=== PATIENT | female | born 1965 | race African-American/Black ===

== ENCOUNTER 2018-02-27 12:53 | Outpatient (REF) | payer MEDICAID, SELFPAY ==
[2018-02-27 21:48] LABS: ALT 23 U/L (12-78); AST 11 U/L (15-37); Albumin 3.7 g/dL (3.4-5.0); Alkaline Phosphatase 141 U/L (46-116); Anion Gap 10.1 mmol/L (3-11); BUN 20 mg/dL (7-18); Bilirubin, Total 0.3 mg/dL (0.2-1.0); CO2 23.9 mmol/L (21.0-32.0); CREATININE 0.84 mg/dL (0.55-1.02); Calcium 8.6 mg/dL (8.5-10.1); Chloride 106 mmol/L (98-107); Cholesterol 189 mg/dL (50-200); Glucose 97 mg/dL (70-100); HDL Cholesterol 45 mg/dL (40-60); LDL CHOLESTEROL 136 mg/dL (<100); Potassium 4.4 mmol/L (3.5-5.1); Sodium 140 mmol/L (136-145); Triglyceride 64 mg/dL (30-150)
[2018-03-01 11:12] LABS: HIV-1/2 Ag & Ab Screen Negative (NEGAT)
== END 2018-02-27 13:13 ==
LOC: NCHCN 12:53
PROVIDERS: PCP Family Medicine; Visit Provider Family Medicine
DX: I10 Essential (primary) hypertension (principal); Z11.3 Encounter for screening for infections with a predominantly sexual mode of transmission; E66.9 Obesity, unspecified; Z11.4 Encounter for screening for human immunodeficiency virus [HIV]; Z13.220 Encounter for screening for lipoid disorders
CPT/HCPCS: 80053; 80061; 83721; 87389

== ENCOUNTER 2018-06-16 07:18 | Day surgery (SDC) | payer MEDICAID, SELFPAY ==
[2018-06-16 07:48] VITALS: BP 140/69; PULSE 96; RESP 18; TEMP 36.6; O2SAT 98
[2018-06-16] MEDS: Lactated Ringers 1,000 ML 80 ML IV (08:08)
[2018-06-16] MEDS: Lidocaine 2% Multi-Dose 50 ML VIAL (09:16)
--- NOTE | 2018-06-16 09:27 | W.PM.DSUDISC ---
Discharge Plan Disposition Patient Disposition: HOME Condition: Improving Discharge Details Reason For Visit: (L) CARPAL TUNNEL Attending Provider: Gregory Ortiz Primary Care Provider: Mary Kate Jean Home Meds and New Rx's Prescriptions: No Action nicotine [Nicoderm CQ] 1 EACH patch 24 hour 14 mg Transdermal DAILY Qty: 30 RF: 3 omeprazole [Prilosec] 20 MG capsule,delayed release(DR/EC) 20 mg PO DAILY RF: 0 ibuprofen 600 MG tablet 600 mg PO Q8H PRN RF: 0 epinephrine [EpiPen 2-Apollo] 0.3 MG/0.3 ML auto-injector 0.3 mg IM ONCE RF: 0 ProAir HFA 8.5 GM HFA aerosol inhaler 2 puff Inhalation Q4H PRN RF: 0 gabapentin 100 MG capsule 300 mg PO BID RF: 0 Discharge Instructions Additional Instructions: Keep your left hand elevated above heart level as much as possible for the next 48-72 hours. Exercise your fingers and thumb as comfort allows. You may loosen the wrist splint and/or the underlying leticia bandage if they feel too tight. Expect some bloody drainage on the underlying gauze bandage. For showering tomorrow, cover your hand and brace with a plastic bag with a rubber band about the upper forearm to keep the bandages dry.On 06/18/17, you may remove all of your bandages and get your wound wet in the shower with soap and water. Gently pat the stitches dry and cover them with gauze, or extra-large bandaids or a clean fingerless cotton glove. This prevents the stitches catching on your clothing or other objects. Continue to use your fingers and thumb as comfort allows. Do not allow your fingers to get stiff. Only continue to use the brace for discomfort and you may go without it after tuesday. Take your regular medications as before. Take tylenol, advil or aleve for milder pain. Tylenol may be taken at the same time as advil or at the same time as aleve as they are metabolized differently and are not cross toxic. take norco (hydrocodone 5/325 mg) 1-2 every 4-6 hours as needed for more serious pain. [facility] [place] regulations limit the amount of norco that can be prescribed to 18 tablets. Follow-up with Dr. Ortiz in 1 week for stitch removal. Equipment/Supplies: Brace Activity:: Elevate Remove Dressings/Wound Care:: 48 hours Shower/Bathe:: 48 hours Diet:: As Tolerated Discharge Orders Discharge Orders: Discharge Order (Routine); Ordered 06/16/18 Ordered By: Gregory Ortiz
[2018-06-16 09:52] VITALS: BP 100/62; PULSE 77; RESP 16; TEMP 36.6; O2SAT 95
--- NOTE | 2018-06-16 11:21 | ROE_ITS ---
REPORT OF OPERATIVE PROCEDURE DATE OF PROCEDURE June 16, 2018 PREOPERATIVE DIAGNOSIS Chronic left carpal tunnel syndrome. POSTOPERATIVE DIAGNOSIS Chronic left carpal tunnel syndrome. PROCEDURE Left open carpal tunnel release. SURGEON Gregory Ortiz M.D. [employer] MANAGER Nurse ANESTHESIA General via LMA by Nitin Castro C.R.N.A. PREP ChloraPrep INDICATIONS This patient is status post successful right carpal tunnel release under general anesthesia. She has a history of posttraumatic stress disorder and does not tolerate local anesthetics. She has chronic a nxiety related to this. She was anxious to have her left hand corrected as she ended up with a good r esult on the right side. I reviewed with her the planned operative procedure. She understood and wish ed to proceed. I marked the left upper extremity in the Day Surgery Holding Area. PROCEDURE DESCRIPTION She was brought to the Operating Suite, where she underwent general anesthesia via LMA. Timeout was i nstituted. After the left upper extremity was prepped and draped with ChloraPrep, the left carpal baldemar juventino incision was made by first making a registration line with a sterile skin marker. She received 1 gram of Ancef as a prophylactic antibiotic. I elevated the limb for 2 minutes, then inflated a tourni quet to 320 mmHg. A universal carpal tunnel incision was made centered over the ring finger ray. Care was taken to deviate it in an ulnar direction so as to prevent injury to the palmar cutaneous branch of the median nerve. Using Loupe magnification, the skin was incised with a #15-scalpel blade. A com bination of sharp and blunt dissection was then used to go through the superficial palmar fascia into the transverse carpal ligament. Heiss retractors were inserted and visualization was excellent. Unde r direct vision, the transverse carpal ligament was incised. It was completely released distally, as well as proximally, including the distal portion of the antebrachial fascia so to prevent it from act ing as a compressive force on the median nerve. There was mild tenosynovitis. The flexor tendons were examined carefully. The median nerve had the characteristic flattening in its mid portion. At this p oint, the tourniquet was deflated. Hemostasis was under control. The wound was then closed with sutur es of #5-0 Ethilon in a [id number]-near technique, alternating with simple sutures. There was minim al bleeding. There was no evidence of any vascular compromise. Lidocaine 2% was utilized prior to kimmie ing the skin incision so as to provide for postoperative analgesia. A total of 16 cc was used. The wound was dressed with Xeroform gauze, followed by 4x4s, and a 3-inch Conforming gauze bandage, f ollowed by 3-inch Shant wrap and a commercial wrist immobilizer and the patient was taken to the Out-Pa tient Recovery Room in satisfactory condition having tolerated the procedure well.
== END 2018-06-16 10:20 | disposition home or self-care (01) ==
PROVIDERS: PCP Family Medicine; Visit Provider Orthopaedic Surgery
PROC: (CPT 64721; principal; 2018-06-16 08:30)
DX: G56.02 Carpal tunnel syndrome, left upper limb (principal)
CPT/HCPCS: 64721; J0690; J1100; J1885; J2250; J2405; J3010; L3908